=== PATIENT | male | born 1960 | race African-American/Black ===

== ENCOUNTER 2023-08-22 17:26 | Emergency (ER) | payer OTHER ==
[~2023-08-22] VITALS: Ht 172.7 cm; Wt 57.6 kg
[2023-08-22 17:32] VITALS: BP 133/57; PULSE 70; RESP 16; TEMP 97.8; O2SAT 98
[2023-08-22] MEDS ORDERED: FOLI2000 PO (18:36)
[2023-08-22] MEDS ORDERED: SIMV-373 PO (18:36)
[2023-08-22] MEDS ORDERED: DEC4 PO (18:36)
[2023-08-22] MEDS ORDERED: DULO30EC PO (18:36)
[2023-08-22] MEDS ORDERED: HYDR-5080 PO (18:36)
[2023-08-22] MEDS ORDERED: SENN-73 PO (18:36)
[2023-08-22] MEDS ORDERED: ONDA-188 PO (18:36)
[2023-08-22] MEDS: SODIUM PHOSPHATE 118 ML ENEM RC ONE (19:25)
[2023-08-22 19:34] VITALS: O2SAT 99
[2023-08-22] MEDS: MAGNESIUM HYDROXIDE 2400 MG/30 ML UDC PO ONE (21:22)
[2023-08-22] MEDS ORDERED: MIRABULK PO (21:38)
[2023-08-22 21:50] VITALS: BP 170/63; PULSE 69; RESP 18; TEMP 97.9; O2SAT 95
== END 2023-08-22 21:50 | disposition home or self-care (01) ==
LOC: MED 17:26
DX: K59.00 Constipation, unspecified (principal); R55 Syncope and collapse; F41.9 Anxiety disorder, unspecified; F32.A Depression, unspecified; R03.0 Elevated blood-pressure reading, without diagnosis of hypertension; E78.5 Hyperlipidemia, unspecified; Z79.1 Long term (current) use of non-steroidal anti-inflammatories (NSAID); Z85.118 Personal history of other malignant neoplasm of bronchus and lung; Z79.899 Other long term (current) drug therapy
CPT/HCPCS: 74018; 99284